=== PATIENT | female | born 1980 | race African-American/Black ===

== ENCOUNTER → 2016-08-05 | Outpatient (CLI) | payer MEDICAID | LOC: OD 11:29 | PROVIDERS: ATTEND Nurse Practitioner Family | DX: G56.01 Carpal tunnel syndrome, right upper limb (principal) ==

== ENCOUNTER 2016-08-28 08:38 | Emergency (ER) | payer OTHER, MEDICAID ==
[2016-08-28] MEDS ORDERED: IBUPROFEN 600 MG TABLET PO ONE (10:35)
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
[2016-08-28 13:02] VITALS: BP 112/72
== END 2016-08-28 12:40 | disposition home or self-care (01) ==
LOC: ER 08:38
DX: S16.1XXA Strain of muscle, fascia and tendon at neck level, initial encounter (principal); S39.012A Strain of muscle, fascia and tendon of lower back, initial encounter; M54.5 Low back pain; M54.9 Dorsalgia, unspecified; M54.2 Cervicalgia; R20.0 Anesthesia of skin; V89.2XXA Person injured in unspecified motor-vehicle accident, traffic, initial encounter
CPT/HCPCS: 99283; 81025; 72110; L0120

== ENCOUNTER → 2018-08-25 | Outpatient (CLI) | payer OTHER, MEDICAID | LOC: OD 10:01 | PROVIDERS: ATTEND Nurse Practitioner Family | DX: N91.2 Amenorrhea, unspecified (principal) | CPT/HCPCS: 36415; 84702 ==

== ENCOUNTER 2019-11-27 18:22 | Emergency (ER) | payer MEDICAID, OTHER ==
[2019-11-27] MEDS ORDERED: ONDANSETRON HCL INJ/PF 4 MG/2 ML SDV IV ONE (18:54)
[2019-11-27] MEDS ORDERED: MORPHINE SULFATE 10 MG/ML INJ IV ONE (18:54)
--- NOTE | 2019-11-27 18:57 | ER Document Report ---
ED GI/ - General Stated Complaint: BODY ACHES/VOMITING/CHILLS Time Seen by Provider: 11/27/19 18:45 Primary Care Provider: CRISTELA EDGAR FNP-C [NURSE PRACTITIONER] - Follow up as needed Notes: CHIEF COMPLAINT: Right upper quadrant pain and vomiting today HPI: 38-year-old female presenting for right upper quadrant pain with 5 episodes of vomiting today. Pain woke her from sleep this morning. She has not been able to eat or drink today last ate last night. No prior history of multiple episodes of upper abdominal pain after eating recently. No history of cholelithiasis known by the patient. Denies lower abdominal pain denies fever. Patient does relate she traveled from [place] last week ROS: See HPI - all other systems were reviewed and are otherwise negative Constitutional: no fever Eyes: no drainage, no blurred vision ENT: no runny nose, no sore throat Cardiovascular: no chest pain Resp: no SOB, no cough GI: + vomiting, no diarrhea, + abdominal pain : no dysuria Integumentary: no rash Allergy: no hives Musculoskeletal: no extremity pain or swelling Neurological: no numbness/tingling, no weakness MEDICATIONS: I agree with the patient medications as charted by the RN. ALLERGIES: I agree with the allergies as charted by the RN. PAST MEDICAL HISTORY/PAST SURGICAL HISTORY: Reviewed and agree as charted by RN. SOCIAL HISTORY: Reviewed and agree as charted by RN. FAMILY HISTORY: No significant familial comorbid conditions directly related to patient complaint EXAM: Reviewed vital signs as charted by RN. CONSTITUTIONAL: Alert and oriented and responds appropriately to questions. Well-appearing; well-nourished, mild distress secondary to pain HEAD: Normocephalic; atraumatic EYES: PERRL; Conjunctivae clear, sclerae non-icteric ENT: normal nose; no rhinorrhea; moist mucous membranes; pharynx without lesions noted, no uvula edema or deviation, no tonsillar hypertrophy, phonation normal NECK: Supple without meningismus; non-tender; no cervical lymphadenopathy, no masses CARD: RRR; no murmurs, no clicks, no rubs, no gallops; symmetric distal pulses RESP: Normal chest excursion without splinting or tachypnea; breath sounds clear and equal bilaterally; no wheezes, no rhonchi, no rales, pulse oximetry 98% on room air not hypoxic ABD/GI: Normal bowel sounds; non-distended; soft, moderate tenderness with guarding in the right upper quadrant with a positive Sagastume sign. No lower abdominal pain on palpation; no palpable organomegaly or masses. BACK: The back appears normal and is non-tender to palpation, there is no CVA tenderness EXT: Normal ROM in all joints; non-tender to palpation; no cyanosis, no effusions, no edema SKIN: Normal color for age and race; warm; dry; good turgor; no acute lesions noted NEURO: Moves all extremities equally; Motor and sensory function intact PSYCH: The patient's mood and manner are appropriate. Grooming and personal hygiene are appropriate. MDM: 38-year-old female right upper quadrant pain with vomiting today. Suspect cholelithiasis or cholecystitis will obtain screening labs and gallbladder ultrasound keep patient n.p.o. TRAVEL OUTSIDE OF THE [place] IN LAST 30 DAYS: No - Related Data Allergies/Adverse Reactions: No Known Allergies Allergy (Verified 08/28/16 08:40) Past Medical History - Social History Smoking Status: Unknown if Ever Smoked Family History: Reviewed & Not Pertinent - Past Medical History Cardiac Medical History: Reports: Hx Hypertension Renal/ Medical History: Denies: Hx Peritoneal Dialysis Past Surgical History: Reports: Hx Section - Immunizations Hx Diphtheria, Pertussis, Tetanus Vaccination: Yes Physical Exam - Vital signs Vitals: Temp 98.6 F 11/27/19 18:30 Course - Re-evaluation Re-evalutation: 11/27/19 20:38 Ultrasound shows likely acute cholecystitis with acute choledocholithiasis. Discussed with Dr. Jimenez surgery he indicates patient will need an ERCP and will need transfer, he specifically requests we transfer the patient. Spoke with Dr. Vanegas attending, will start with gastroenterology advised and patient prefers to stay local but given the need for both GI, ERCP and surgery might be difficult to transfer locally. Will start antibiotics. 11/27/19 20:42 spoke with the transfer center at [facility]. They are closed for transfers due to capacity and are unable to take the patient. 11/27/19 20:44 spoke with transfer center at [facility], they are closed for transfers except trauma stroke OB or STEMI and are unable to take the patient 11/27/19 20:46 spoke with transfer center at [facility]. They do not have ERCP coverage this weekend and are unable to take the patient 11/27/19 21:04 I spoke with Vane at the transfer center at [facility] for [place] and [place]. Case was discussed she will check on bed status and call me back 11/27/19 21:[address] Daniel Delgado, ER attending at [facility]. Case was discussed, we will power share her ultrasound images. They will accept the patient in transfer ER to ER. - Vital Signs Vital signs: Temp Pulse Resp BP Pulse Ox 98.6 F 65 18 165/92 H 100 11/27/19 19:14 11/27/19 19:14 11/27/19 19:14 11/27/19 19:14 11/27/19 19:14 - Laboratory Result Diagrams: 11/27/19 19:10 11/27/19 19:10 Laboratory results interpreted by me: 11/27/19 11/27/19 11/27/19 19:10 19:10 19:34 WBC 17.4 H Lymph % (Auto) 6.7 L [place] % (Auto) 1.5 L Absolute Neuts (auto) 15.9 H Seg Neutrophils % 91.5 H Glucose 151 H Lipase 406.8 H Urine Protein 100 H Urine Ketones 80 H Urine Blood MODERATE H Urine Ascorbic Acid 40 H Critical Care Note - Critical Care Note Total time excluding time spent on procedures (mins): 45 - Acute cholecystitis with choledocholithiasis requiring multiple consultations for transfer for emergent ERCP and surgery Discharge - Discharge Clinical Impression: Acute cholecystitis, Choledocholithiasis Condition: Stable Disposition: [place] Referrals: CRISTELA EDGAR FNP-C [NURSE PRACTITIONER] - Follow up as needed
[2019-11-27 19:26] LABS: ABSOLUTE LYMPHOCYTES (AUTO) 1.2 10^3/uL (0.5-4.7); ABSOLUTE MONOCYTES (AUTO) 0.3 10^3/uL (0.1-1.4); ABSOLUTE NEUT (AUTO) 15.9 10^3/uL (1.7-8.2); BASOPHILS % (AUTO) 0.2 % (0-2); EOSINOPHILS % (AUTO) 0.1 % (0-6); HEMATOCRIT 40.1 % (36.0-47.0); HEMOGLOBIN 13.5 g/dL (12.0-15.5); LYMPHOCYTES % (AUTO) 6.7 % (13-45); MEAN CORPUSCULAR HEMOGLOBIN 31.7 pg (27.0-33.4); MEAN CORPUSCULAR HGB CONC 33.8 g/dL (32.0-36.0); MEAN CORPUSCULAR VOLUME 94 fl (80-97); MONOCYTES % (AUTO) 1.5 % (3-13); PLATELET COUNT 440 10^3/uL (150-450); RED BLOOD COUNT 4.28 10^6/uL (3.72-5.28); RED CELL DISTRIBUTION WIDTH 13.3 % (11.5-14.0); SEGMENTED NEUTROPHILS % (AUTO) 91.5 % (42-78); TOTAL CELLS COUNTED % (AUTO) 100 %; WHITE BLOOD COUNT 17.4 10^3/uL (4.0-10.5)
[2019-11-27 19:44] LABS: ALBUMIN 4.5 g/dL (3.5-5.0); ALKALINE PHOSPHATASE 80 U/L (38-126); ANION GAP 9 (5-19); ASPARTATE AMINO TRANSFERASE 22 U/L (14-36); BILIRUBIN,DIRECT 0.3 mg/dL (0.0-0.4); BILIRUBIN,TOTAL 0.3 mg/dL (0.2-1.3); BLOOD UREA NITROGEN 7 mg/dL (7-20); CALCIUM 9.7 mg/dL (8.4-10.2); CARBON DIOXIDE 25 mmol/L (22-30); CHLORIDE 103 mmol/L (98-107); GLUCOSE 151 mg/dL (75-110); POTASSIUM 4.3 mmol/L (3.6-5.0)
--- NOTE | 2019-11-27 20:28 | RADIOLOGY REPORT (SQ) ---
EXAM DESCRIPTION: US ABDOMEN LIMITED COMPLETED DATE/TME: 11/27/2019 18:54 CLINICAL HISTORY: 38 years, Female, ruq pain COMPARISON: None. TECHNIQUE: Axial 2-D grayscale images of the abdomen were acquired. Doppler was utilized. LIMITATIONS: None. FINDINGS: Visualized portions of the pancreas appear normal in echogenicity. Visualized portions of the abdominal aorta and IVC appear normal. Liver is normal in echogenicity. Liver length is 15.8 cm. Antegrade flow is documented within the main portal vein. Common bile duct diameter measures 3 mm. Multiple gallstones are noted. Gallbladder wall thickness is 6 mm. Trace pericholecystic free fluid is evident. Sonographic Sagastume sign was positive. In addition, there is a focus of curvilinear hyperechogenicity with posterior acoustic shadowing located about the proximal common bile duct measuring up to 4 mm in diameter, suspicious for choledocholithiasis. Right kidney measures 10.7 x 3.5 x 5.3 cm in size. No hydronephrosis. IMPRESSION: Overall, sonographic findings are most compatible with acute cholecystitis, as above described. In addition, there is suspected choledocholithiasis, specifically with a 4 mm calculus located within the proximal common bile duct. copyright 2010 [employer]- All Rights Reserved
[2019-11-27 20:29] LABS: APPEARANCE,URINE CLEAR; BILIRUBIN,URINE NEGATIVE (NEGATIVE); COLOR,URINE YELLOW; GLUCOSE, URINE NEGATIVE (NEGATIVE); KETONES,URINE 80 mg/dL (NEGATIVE); LEUKOCYTE ESTERASE,URINE NEGATIVE (NEGATIVE); NITRITE,URINE NEGATIVE (NEGATIVE); PROTEIN,URINE 100 mg/dL (NEGATIVE); URINE SPECIFIC GRAVITY 1.027; UROBILINOGEN,URINE NEGATIVE mg/dL (<2.0)
[2019-11-27] MEDS ORDERED: PIPERACILLIN/TAZOBACTAM 3.375 GM VIAL IV ONE (20:38)
[2019-11-28 00:55] VITALS: BP 162/86
== END 2019-11-28 00:45 | disposition short-term general hospital (02) ==
LOC: ER 18:22
DX: K80.42 Calculus of bile duct with acute cholecystitis without obstruction (principal); M79.10 Myalgia, unspecified site; R11.10 Vomiting, unspecified; R10.11 Right upper quadrant pain; I10 Essential (primary) hypertension; Z20.828 Contact with and (suspected) exposure to other viral communicable diseases
CPT/HCPCS: 99291; 96375; 96365; 36415; 83690; 85025; 87635; 81025; 80053; 81001; 76705; J2270; J2405; J2543; C9803